=== PATIENT | male | born 1965 | race Caucasian/White ===

== ENCOUNTER 2020-09-28 12:51 | Emergency (ER) | payer OTHER ==
[~2020-09-28] VITALS: Ht 177.8 cm; Wt 83.9 kg
[2020-09-28] MEDS ORDERED: TRICOR48 MG (13:13)
[2020-09-28] MEDS ORDERED: CRESTOR5 MG (13:13)
== END 2020-09-28 14:41 | disposition home or self-care (01) ==
LOC: ER 12:51
DX: S00.3 Superficial injury of nose (principal); X58.XXXS Exposure to other specified factors, sequela